=== PATIENT | female | born 1970 | race African-American/Black ===

== ENCOUNTER 2018-08-05 18:20 | Emergency (ER) | payer SELFPAY ==
[~2018-08-05] VITALS: Ht 160 cm; Wt 86.0 kg
[2018-08-05 18:30] VITALS: BP 159/87
== END 2018-08-05 21:00 | disposition left against medical advice (07) ==
LOC: ER 18:20
DX: R00.2 Palpitations (principal); M54.2 Cervicalgia; Z53.21 Procedure and treatment not carried out due to patient leaving prior to being seen by health care provider
CPT/HCPCS: 93005

== ENCOUNTER 2021-01-09 20:26 | Inpatient (IN) | payer OTHER, MEDICAID ==
[~2021-01-09] VITALS: Ht 165.1 cm; Wt 77.3 kg
[2021-01-09 21:38] LABS: CLARITY URINE CLOUDY (CLEAR); COLOR URINE YELLOW (YELLOW); KETONES URINE 1+ (NEGATIVE); LEUKOCYTE ESTERASE URINE 2+ (NEGATIVE); NITRITE URINE NEGATIVE (NEGATIVE); OCCULT BLOOD URINE NEGATIVE (NEGATIVE); PH URINE 5.5 (4.5-8.0); PROTEIN URINE 2+ (NEGATIVE); SPECIFIC GRAVITY URINE 1.025 (1.005-1.030); UROBILINOGEN URINE 0.2 E.U./dL (0.2-1.0)
[2021-01-09 22:05] LABS: BASOPHILS % 0.5 % (0.0-2.0); EOSINOPHILS % 0.3 % (0.0-5.0); HEMATOCRIT. 33.7 % (36.0-48.0); HEMOGLOBIN. 11.2 g/dL (12.0-16.0); LYMPHOCYTES % 15.2 % (20.0-50.0); MEAN CORPUSCULAR HEMOGLOBIN 25.1 pg (28.0-32.0); MEAN CORPUSCULAR VOLUME 75.3 fL (81.0-99.0); MEAN PLATELET VOLUME 8.8 fl (7.4-10.4); MONOCYTES % 11.2 % (2.0-8.0); NEUTROPHILS % 72.8 % (40.0-76.0); PLATELET 299 x1000/uL (130-400); RED BLOOD CELL COUNT 4.47 mill/uL (4.2-5.4); RED CELL DISTRIBUTION WIDTH 14.6 % (11.6-14.6)
[2021-01-09 22:13] LABS: CHLORIDE 104 mEq/L (98-107)
[2021-01-09 22:15] LABS: PROTHROMBIN TIME 10.9 sec (9.6-11.0)
[2021-01-09 22:18] LABS: PHOSPHORUS 2.5 mg/dL (2.5-4.9)
[2021-01-09] MEDS ORDERED: VANCOMYCIN 1 G PREMIX 200 ML IV SCH (23:00)
[2021-01-09] MEDS ORDERED: PIPERACILLIN/TAZ 3.375G PREMIX 50 ML IV NR (23:00)
[2021-01-09] MEDS ORDERED: PIPERACILLIN/TAZOBACTAM 3.375GM/50ML PREMIX IV ONE (23:00)
[2021-01-10] VITALS (7 sets, daily range): BP systolic 109–134; BP diastolic 70–84
[2021-01-10] MEDS ORDERED: PROP10TA10 PO (05:07)
[2021-01-10] MEDS ORDERED: AMLO5TAB88 PO (05:07)
[2021-01-10] MEDS ORDERED: IPRATROPIUM/ALBUTEROL 0.5-3(2.5)MG/3ML NEB NEB PRN (06:30)
[2021-01-10] MEDS ORDERED: CEFTRIAXONE 1 G PREMIX 50 ML IV SCH (06:30)
[2021-01-10] MEDS: ENOXAPARIN 40MG/0.4ML SYR SUBCUT SCH (09:51)
[2021-01-10] MEDS: ACETAMINOPHEN 325MG TABLET PO PRN ×4 (09:53→23:05)
[2021-01-10] MEDS: CEFTRIAXONE 1,000 MG in DEXTROSE 5% WATER 50 ML IV SCH (10:14)
[2021-01-10] MEDS: AZITHROMYCIN 500 MG in DEXT 5% WATER 250 ML IV SCH (10:27)
[2021-01-10] MEDS ORDERED: ONDANSETRON HCL 4MG/2ML INJ IV PRN (12:45)
[2021-01-10] MEDS ORDERED: DEXAMETHASONE 10 MG/ML VIAL IV SCH (17:45)
[2021-01-10] MEDS ORDERED: MAGNESIUM/ALUMINUM HYDROXIDE/SIMETHICONE 30ML UDC PO PRN (20:15)
[2021-01-10] MEDS ORDERED: CLONIDINE 0.1MG TABLET PO PRN (20:15)
[2021-01-10] MEDS ORDERED: METOPROLOL TARTRATE 50MG TABLET PO SCH (23:00)
[2021-01-10] MEDS ORDERED: DILTIAZEM HCL 5MG/ML 5ML VIAL IV ONE (23:45)
[2021-01-10] MEDS ORDERED: DILTIAZEM HCL 5MG/ML 25ML VIAL IV NR (23:45)
[2021-01-11] VITALS (92 sets, daily range): BP systolic 40–145; BP diastolic 23–89
[2021-01-11] MEDS ORDERED: DILTIAZEM HCL 5MG/ML 5ML VIAL IV NR (01:15)
[2021-01-11] MEDS ORDERED: DILTIAZEM HCL 125 MG in DEXT 5% WATER 100 ML IV PRN (01:15)
[2021-01-11] MEDS: AMIODARONE HCL 200 MG TABLET PO SCH ×3 (01:28→18:44)
[2021-01-11] MEDS ORDERED: LIDOCAINE HCL/PF 1% 2ML VIAL ONE (05:00)
[2021-01-11 05:23] LABS: BASOPHILS % 0.2 % (0.0-2.0); EOSINOPHILS % 0.4 % (0.0-5.0); HEMATOCRIT. 35.3 % (36.0-48.0); HEMOGLOBIN. 11.5 g/dL (12.0-16.0); LYMPHOCYTES % 22.4 % (20.0-50.0); MEAN CORPUSCULAR HEMOGLOBIN 24.6 pg (28.0-32.0); MEAN CORPUSCULAR VOLUME 75.4 fL (81.0-99.0); MEAN PLATELET VOLUME 8.6 fl (7.4-10.4); MONOCYTES % 12.9 % (2.0-8.0); NEUTROPHILS % 64.1 % (40.0-76.0); PLATELET 314 x1000/uL (130-400); RED BLOOD CELL COUNT 4.69 mill/uL (4.2-5.4); RED CELL DISTRIBUTION WIDTH 14.1 % (11.6-14.6)
[2021-01-11 06:08] LABS: CHLORIDE 98 mEq/L (98-107)
[2021-01-11 06:15] LABS: PHOSPHORUS 4.1 mg/dL (2.5-4.9)
[2021-01-11] MEDS: CEFTRIAXONE 1,000 MG in DEXTROSE 5% WATER 50 ML IV SCH (06:30)
[2021-01-11] MEDS: OMEPRAZOLE 20MG CAPSULE EXTENDED RELEASE PO SCH (06:31)
[2021-01-11] MEDS: ACETAMINOPHEN 325MG TABLET PO PRN (06:37)
[2021-01-11 08:55] LABS: LDL CHOLESTEROL 105 mg/dL (5-100)
[2021-01-11 08:56] LABS: HDL CHOLESTEROL 27 mg/dL (40-59)
[2021-01-11 08:57] LABS: T4 FREE 1.08 ng/dL (0.76-1.46)
[2021-01-11] MEDS: ENOXAPARIN 40MG/0.4ML SYR SUBCUT SCH (09:00)
[2021-01-11 09:26] LABS: BG BASE EXCESS 4.8 mmol/L (-2.0-2.0); BG CARBOXYHEMOGLOBIN 0.2 % (0.5-1.5); BG DEOXYHEMOGLOBIN 2.9 % (0.0-5.0); BG FRACTION INSPIRED OXYGEN 36; BG HCO3 ACT 29.1 mmol/L (22.0-26.0); BG METHEMOGLOBIN 0.3 % (0.0-1.5); BG OXYGEN SATURATION 97.1 % (92.0-98.5); BG OXYHEMOGLOBIN 96.6 % (94.0-97.0); BG PCO2 41.9 mmHg (35.0-45.0); BG PO2 86.8 mmHg (75.0-100.0); BG SAMPLE SITE LEFT RADIAL; BG TOTAL HEMOGLOBIN 11.8 g/dL (12.0-18.0); BG VENT MODE NASAL CANNULA
[2021-01-11] MEDS ORDERED: GUAIFENESIN-DM 200MG-20MG/10ML UDC PO PRN (11:00)
[2021-01-11] MEDS: AZITHROMYCIN 500 MG in DEXT 5% WATER 250 ML IV SCH (11:48)
[2021-01-11 13:11] LABS: *AMPHETAMINES SCREEN URINE NEGATIVE (NEGATIVE); *BARBITURATES SCREEN URINE NEGATIVE (NEGATIVE)
[2021-01-11 13:13] LABS: *BENZODIAZEPINES SCREEN URINE NEGATIVE (NEGATIVE); *COCAINE SCREEN URINE NEGATIVE (NEGATIVE); CANNABINOID URINE SCREEN NEGATIVE (NEGATIVE); METHADONE URINE SCREEN NEGATIVE (NEGATIVE); OPIATES URINE SCREEN NEGATIVE (NEGATIVE); PHENCYCLIDINE URINE SCREEN NEGATIVE (NEGATIVE)
[2021-01-11] MEDS: METOPROLOL TARTRATE 100MG TABLET PO SCH (20:03)
[2021-01-12] VITALS (41 sets, daily range): BP systolic 93–129; BP diastolic 52–101
[2021-01-12] MEDS: AMIODARONE HCL 200 MG TABLET PO SCH ×3 (01:51→17:51)
[2021-01-12 05:43] LABS: CHLORIDE 101 mEq/L (98-107)
[2021-01-12 05:48] LABS: BASOPHILS % 0.2 % (0.0-2.0); EOSINOPHILS % 0.7 % (0.0-5.0); HEMATOCRIT. 33.1 % (36.0-48.0); HEMOGLOBIN. 10.7 g/dL (12.0-16.0); LYMPHOCYTES % 27.8 % (20.0-50.0); MEAN CORPUSCULAR HEMOGLOBIN 24.4 pg (28.0-32.0); MEAN CORPUSCULAR VOLUME 75.4 fL (81.0-99.0); MEAN PLATELET VOLUME 8.8 fl (7.4-10.4); MONOCYTES % 14.5 % (2.0-8.0); NEUTROPHILS % 56.8 % (40.0-76.0); PLATELET 303 x1000/uL (130-400); RED BLOOD CELL COUNT 4.38 mill/uL (4.2-5.4); RED CELL DISTRIBUTION WIDTH 14.3 % (11.6-14.6)
[2021-01-12] MEDS: OMEPRAZOLE 20MG CAPSULE EXTENDED RELEASE PO SCH (06:30)
[2021-01-12] MEDS: CEFTRIAXONE 1,000 MG in DEXTROSE 5% WATER 50 ML IV SCH (06:30)
[2021-01-12] MEDS: METOPROLOL TARTRATE 100MG TABLET PO SCH ×2 (09:00→21:39)
[2021-01-12] MEDS: AZITHROMYCIN 500 MG in DEXT 5% WATER 250 ML IV SCH (09:00)
[2021-01-12] MEDS: ENOXAPARIN 40MG/0.4ML SYR SUBCUT SCH (09:02)
[2021-01-13] VITALS: BP 95/45
[2021-01-13] MEDS: AMIODARONE HCL 200 MG TABLET PO SCH ×3 (02:00→18:21)
[2021-01-13 04:00] VITALS: BP 99/50
[2021-01-13] MEDS: OMEPRAZOLE 20MG CAPSULE EXTENDED RELEASE PO SCH (06:52)
[2021-01-13 08:40] VITALS: BP 116/70
[2021-01-13] MEDS: ENOXAPARIN 40MG/0.4ML SYR SUBCUT SCH (09:07)
[2021-01-13] MEDS: CEFTRIAXONE 1,000 MG in DEXTROSE 5% WATER 50 ML IV SCH (09:08)
[2021-01-13] MEDS: METOPROLOL TARTRATE 100MG TABLET PO SCH ×2 (09:08→20:23)
[2021-01-13] MEDS: AZITHROMYCIN 500 MG in DEXT 5% WATER 250 ML IV SCH (09:08)
[2021-01-13 16:52] VITALS: BP 101/50
[2021-01-13 20:00] VITALS: BP 128/66
[2021-01-13] MEDS: FAMOTIDINE 20MG TABLET PO SCH (20:23)
[2021-01-13 21:49] LABS: BG BASE EXCESS 6.4 mmol/L (-2.0-2.0); BG CARBOXYHEMOGLOBIN 0.3 % (0.5-1.5); BG DEOXYHEMOGLOBIN 21.2 % (0.0-5.0); BG HCO3 ACT 30.3 mmol/L (22.0-26.0); BG METHEMOGLOBIN 0.3 % (0.0-1.5); BG OXYGEN SATURATION 78.7 % (92.0-98.5); BG OXYHEMOGLOBIN 78.2 % (94.0-97.0); BG PH 7.487 (7.350-7.450); BG PO2 40.4 mmHg (75.0-100.0); BG SAMPLE SITE RIGHT RADIAL; BG TOTAL HEMOGLOBIN 10.7 g/dL (12.0-18.0); BG VENT MODE ROOM AIR
[2021-01-14] VITALS: BP 100/56
[2021-01-14 04:00] VITALS: BP 100/58
[2021-01-14] MEDS: CEFTRIAXONE 1,000 MG in DEXTROSE 5% WATER 50 ML IV SCH (06:17)
[2021-01-14] MEDS: FAMOTIDINE 20MG TABLET PO SCH ×2 (06:17→21:02)
[2021-01-14 08:00] VITALS: BP 99/51
[2021-01-14] MEDS: METOPROLOL TARTRATE 100MG TABLET PO SCH (09:00)
[2021-01-14] MEDS: AMIODARONE HCL 200 MG TABLET PO SCH ×2 (09:26→17:45)
[2021-01-14] MEDS: ENOXAPARIN 40MG/0.4ML SYR SUBCUT SCH (09:26)
[2021-01-14] MEDS: AZITHROMYCIN 500 MG in DEXT 5% WATER 250 ML IV SCH (09:27)
[2021-01-14 12:00] VITALS: BP 108/68
[2021-01-14 16:00] VITALS: BP 104/63
[2021-01-14 20:00] VITALS: BP 108/69
[2021-01-14] MEDS: METOPROLOL TARTRATE 50MG TABLET PO SCH (21:00)
[2021-01-15] VITALS: BP 104/61
[2021-01-15 04:00] VITALS: BP 97/45
[2021-01-15] MEDS: FAMOTIDINE 20MG TABLET PO SCH (06:06)
[2021-01-15] MEDS: CEFTRIAXONE 1,000 MG in DEXTROSE 5% WATER 50 ML IV SCH (06:06)
[2021-01-15 08:00] VITALS: BP 106/70
[2021-01-15] MEDS: METOPROLOL TARTRATE 50MG TABLET PO SCH (08:31)
[2021-01-15] MEDS: AMIODARONE HCL 200 MG TABLET PO SCH ×2 (08:31→17:29)
[2021-01-15] MEDS: ENOXAPARIN 40MG/0.4ML SYR SUBCUT SCH (08:32)
[2021-01-15] MEDS ORDERED: IOHEXOL-350 100 ML BOTTLE ONE (09:49)
[2021-01-15 12:00] VITALS: BP 111/71
[2021-01-15] MEDS ORDERED: ALBU18HF2 IH (12:20)
[2021-01-15] MEDS ORDERED: LEVO500T89 MT (12:20)
[2021-01-15 15:06] VITALS: BP 103/64
[2021-01-15 16:00] VITALS: BP 103/64
[2021-01-16] MEDS ORDERED: CEFTRIAXONE 1 G PREMIX 50 ML IV SCH (06:00)
[2021-01-16] MEDS ORDERED: CEFTRIAXONE 1,000 MG in DEXTROSE 5% WATER 50 ML IV SCH (06:00)
== END 2021-01-15 18:06 | disposition home or self-care (01) | DRG 871 ==
LOC: ER 20:26 → 7WST 01-10 00:03 → ENRESERV 01-10 03:44 → 5WST 01-10 20:05 → MICUNO 01-11 00:40 → 8WST 01-12 11:00
PROVIDERS: ADMIT Internal Medicine; ATTEND Internal Medicine
DX: A41.9 Sepsis, unspecified organism (principal); J96.01 Acute respiratory failure with hypoxia; J18.9 Pneumonia, unspecified organism; N39.0 Urinary tract infection, site not specified; I47.1 Supraventricular tachycardia; Z20.822 Contact with and (suspected) exposure to COVID-19; I11.9 Hypertensive heart disease without heart failure; Z82.49 Family history of ischemic heart disease and other diseases of the circulatory system; Z90.710 Acquired absence of both cervix and uterus; Z98.891 History of uterine scar from previous surgery
CPT/HCPCS: 36415; 36600; 71045; 71275; 80048; 80053; 80061; 80076; 80305; 81003; 82375; 82550; 82728; 82805; 83036; 83605; 83615; 83735; 83880; 84100; 84145; 84439; 84443; 84484; 85025; 85379; 85384; 86140; 93005; 93306; 93970; 97162; 99291; J0456; J0696; J1650; J2405; J2543; J3370; J3490; J7040; J7060; Q9967; U0003; U0005